=== PATIENT | male | born 1955 | race Caucasian/White ===

== ENCOUNTER → 2017-09-29 | Outpatient (CLI) | payer OTHER | END | disposition home or self-care (01) | LOC: NM 09:39 | DX: M54.12 Radiculopathy, cervical region (principal); M47.892 Other spondylosis, cervical region; M48.02 Spinal stenosis, cervical region; I10 Essential (primary) hypertension; E11.9 Type 2 diabetes mellitus without complications | CPT/HCPCS: 72050 ==

== ENCOUNTER → 2017-10-02 | Outpatient (CLI) | payer OTHER | END | disposition home or self-care (01) | LOC: KCIC MRI 13:29 | DX: M50.121 Cervical disc disorder at C4-C5 level with radiculopathy (principal); M25.78 Osteophyte, vertebrae; I10 Essential (primary) hypertension; E11.9 Type 2 diabetes mellitus without complications | CPT/HCPCS: 72141 ==

== ENCOUNTER → 2017-12-30 | Outpatient (CLI) | payer OTHER | END | disposition home or self-care (01) | LOC: KCIC MRI 12:46 | DX: S83.211A Bucket-handle tear of medial meniscus, current injury, right knee, initial encounter (principal); M71.21 Synovial cyst of popliteal space [Baker], right knee; M94.261 Chondromalacia, right knee; M17.11 Unilateral primary osteoarthritis, right knee; I10 Essential (primary) hypertension; E11.9 Type 2 diabetes mellitus without complications; J44.9 Chronic obstructive pulmonary disease, unspecified; X58.XXXA Exposure to other specified factors, initial encounter; Y93.89 Activity, other specified; Y92.89 Other specified places as the place of occurrence of the external cause; Y99.8 Other external cause status | CPT/HCPCS: 73721 ==

== ENCOUNTER 2018-02-06 08:02 | Day surgery (SDC) | payer OTHER ==
[~2018-02-06] VITALS: Ht 182.9 cm; Wt 109.0 kg
[~2018-02-06 08:02] MED LIST: ATOR10TA60 PO; BENZ-8 PO; BUPIVACAINE-EPI 0.5%-1:200000 50 ML VIAL. ONE; CELE200C PO; DEPO TESTOSTERONE; FLUT1DIS IH; FLUT9.9S NS; HYDROmorphone 2 MG/ML VIAL IV PRN; IBUP-1060 PO; INSU100V13 SQ; INSU100V31 SQ; IV RINGERS,LACTATED 1000ML 1,000 ML IV SCH; LANS30CA PO; LIDOCAINE 1% PF 2 ML VIAL. ID PRN; LISI10TA2 PO; LORA10TA3 PO; METF500T5 PO; METH-38 PO; MONT10TA6 PO; MONT10TA9 PO; MORPHINE SULFATE 2 MG/ML VIAL. IV PRN; ONDANSETRON PF 4 MG/2 ML VIAL. IV PRN; OXYC-323 PO; PANT20TA2 PO; PENI500T PO; PREG150C PO; PROCHLORPERAZINE 10 MG/2 ML VIAL. IV PRN; SIMV20TA3 PO; TRAM-48 PO; TRAM50TA PO; TYLENOL OTC; VENL150C PO; [UNRECOGNIZED DRUG - REMARK]; claritin; fentaNYL PF VIAL 100 MCG/2 ML VIAL IV PRN; metformin; prevacid
[2018-02-06] MEDS ORDERED: BUPIVACAINE-EPI 0.5%-1:200000 50 ML VIAL. ONE (08:40)
--- NOTE | 2018-02-06 08:43 | RAD ---
CHEST PA LATERAL History: PRE-OP FOR KNEE SURGERY, SMOKER Comparison: February 16, 2015 Findings: 2 views of the chest are submitted. There is no infiltrate, pneumothorax, or effusion. The cardiac silhouette is within normal limits in size. There are again 3 calcified granulomas of the left lung base which are unchanged. Impression: 1. There is no radiographic evidence of acute cardiopulmonary disease. Electronically signed by: Mihir Perez MD (02/06/2018 8:40 AM) [id number]
--- NOTE | 2018-02-06 08:53 | DISCH ---
DISCHARGE INSTRUCTIONS Condition on Discharge Condition on Discharge: Stable Activity After Discharge Activity Instructions for Disc: No restrictions (slow advance to normal activities) Weight Bearing Status after Di: As tolerated Diet after Discharge Diet after Discharge: Low Fat, Low Sodium 2 gm Wound Incision Care Wound/Incision Care: Ice to area for comfort, Keep wound elevated, Change dressing (May remove dressing in 2 days may then shower but no soaking knee until sutures removed) Contacting the DR. after DC Call your doctor for: Concerns you may have Follow-Up Follow up with: Yuridia 10 days Treatment/Equipment after DC Adaptive Equipment Issued: None DAE WELLS MD Feb 06, 2018 08:53
[2018-02-06] MEDS ORDERED: OXYC-327 PO (08:55)
--- NOTE | 2018-02-06 08:55 | EKG ---
[facility] [address] [place] [address] Test Date: 2018-02-06 Test Time: 08:00:56 Pat Name: SACHIN ALARCON Department: Room: Gender: M [employer] Offbearer: MR SWANB: 1955 Requested By: DAE WELLS Order Number: [id number] Reading MD: Jair Castaneda MD Measurements Intervals [place] Rate: 86 P: 90 OK: 176 QRS: -49 QRSD: 100 T: 7 QT: 382 QTc: 460 Interpretive Statements SINUS RHYTHM ABNORMAL LEFT AXIS DEVIATION LEFT ANTERIOR FASCICULAR BLOCK ABNORMAL ECG Electronically Signed On 02-10-2018 8:58:36 CDT by Jair Castaneda MD
[2018-02-06] MEDS ORDERED: LIDOCAINE 2% PF Vial for OR 5 ML VIAL. ONE (09:38)
[2018-02-06] MEDS ORDERED: PROPOFOL 20 ML IV ONE (09:38)
[2018-02-06] MEDS ORDERED: ONDANSETRON PF 4 MG/2 ML VIAL. ONE (09:39)
[2018-02-06] MEDS ORDERED: DEXAMETHASONE SOD PHOS 20 MG/5 ML VIAL. ONE (09:39)
[2018-02-06] MEDS ORDERED: MIDAZOLAM HCL/PF 2 MG/2 ML VIAL. ONE (09:40)
[2018-02-06] MEDS ORDERED: fentaNYL PF VIAL 100 MCG/2 ML VIAL ONE (09:40)
[2018-02-06] MEDS ORDERED: BUPIVACAINE-EPI 0.5%-1:200000 50 ML VIAL. INJ ONE (10:12)
[2018-02-06] MEDS ORDERED: ceFAZolin SODIUM 1 GM VIAL ONE (10:13)
--- NOTE | 2018-02-06 11:05 | PDOC4 ---
Operative Note Operative Note Date of surgery: 02/06/2018 Preoperative diagnosis: Flipped bucket handle tear medial meniscus right knee Postoperative diagnosis: Same plus chondral malacia patella Operative procedure: Right knee arthroscopy partial medial meniscectomy Surgeon: Yuridia Anesthesia: Gen. Estimated blood loss: 3 mL Complications: None Operative indications:Dallas is a 62-year-old male with right knee pain and swelling. MRI shows a flipped bucket handle tear of the medial meniscus. He also has some sciatica type pain that has been ongoing. I told him that if he walks better given the mechanical treatment of his knee it may help his back but I cannot guarantee any help with the sciatica. Likewise I cannot undo any degenerative changes present on the knee other than simply removing any loose irritants in the knee. I went over risks benefits postoperative course with him including continued pain swelling nerve or blood vessel damage infection medical or other anesthetic complications among others all his questions were answered he wishes to proceed with surgical evaluation and treatment Operative text: Patient was identified procedure verified patient placed in the supine position on the operating table. After adequate amounts of general anesthesia were administered a thigh tourniquet was placed in the right lower extremity was prepped and draped in standard sterile fashion. After timeout was performed patient procedure identified and verified the right lower extremity was exsanguinated by Esmarch bandage tourniquet inflated to 300 mmHg lateral portal was established a medial portal established using spinal needle localization and the knee joint was systematically examined. Patellofemoral joint was noted to be with significant patellofemoral chondromalacia and not requiring debridement. The trochlea was intact. There was no maltracking no loose bodies noted in the gutters or suprapatellar pouch medial meniscus was found to have a flipped bucket handle tear of the posterior horn of the medial meniscus which was displaced anteriorly and was reduced back into position using the arthroscopic probe and the damage surveyed. It was then trimmed back to stable tissue using arthroscopic punch and shaver to radiused the area to eliminate further stress risers. He had some minimal chondral fraying on the medial femoral condyle which was gently trimmed with arthroscopic shaver lateral meniscus and lateral compartment cartilage was well-preserved as was the ACL. The knee was toured again to verify no loose bodies were present the knee was drained of arthroscopic fluid portals closed with nylon suture and a total of about 25 mL of half percent plain Marcaine were infused into the fat pad and joint capsule area. Sterile dressings were applied. Toes were noted be warm pink find deflation of tourniquet. He was returned recovery room in stable condition having tolerated procedure well DAE WELLS MD Feb 06, 2018 11:05
[2018-02-06] MEDS: fentaNYL PF VIAL 100 MCG/2 ML VIAL IV PRN ×2 (11:06→11:30)
[2018-02-06 11:44] VITALS: BP 153/90
[2018-02-06] MEDS ORDERED: oxyCODONE/APAP 7.5/325 1 TAB TABLET PO PRN (12:00)
== END 2018-02-06 12:25 | disposition home or self-care (01) ==
LOC: SURG 08:02
PROVIDERS: ATTEND Orthopaedic Surgery
DX: S83.211A Bucket-handle tear of medial meniscus, current injury, right knee, initial encounter (principal); M22.41 Chondromalacia patellae, right knee; F32.9 Major depressive disorder, single episode, unspecified; I10 Essential (primary) hypertension; J44.9 Chronic obstructive pulmonary disease, unspecified; E11.42 Type 2 diabetes mellitus with diabetic polyneuropathy; E78.5 Hyperlipidemia, unspecified; K21.9 Gastro-esophageal reflux disease without esophagitis; F17.210 Nicotine dependence, cigarettes, uncomplicated; Z72.89 Other problems related to lifestyle; Z79.84 Long term (current) use of oral hypoglycemic drugs; Z79.899 Other long term (current) drug therapy; Z88.8 Allergy status to other drugs, medicaments and biological substances; W01.0XXA Fall on same level from slipping, tripping and stumbling without subsequent striking against object, initial encounter; Y93.89 Activity, other specified; Y92.89 Other specified places as the place of occurrence of the external cause; Y99.8 Other external cause status
CPT/HCPCS: 29881; 71046; 82962; 93005; C1782; J0690; J1100; J2001; J2250; J2270; J2405; J2704; J3010

== ENCOUNTER → 2018-03-25 | Outpatient (CLI) | payer OTHER ==
[~2018-03-25] MED LIST changes: -BUPIVACAINE-EPI 0.5%-1:200000 50 ML VIAL. ONE; -HYDROmorphone 2 MG/ML VIAL IV PRN; -IV RINGERS,LACTATED 1000ML 1,000 ML IV SCH; -LIDOCAINE 1% PF 2 ML VIAL. ID PRN; +METF500T16 PO; -METF500T5 PO; -MORPHINE SULFATE 2 MG/ML VIAL. IV PRN; -ONDANSETRON PF 4 MG/2 ML VIAL. IV PRN; +OXYC-327 PO; -PROCHLORPERAZINE 10 MG/2 ML VIAL. IV PRN; -fentaNYL PF VIAL 100 MCG/2 ML VIAL IV PRN
[2018-03-25 13:12] LABS: CALCIUM 9.1 mg/dL (8.5-10.1); CREATININE 0.9 mg/dL (0.7-1.3); GFR 86.1
[2018-03-25 13:21] LABS: POTASSIUM 5.2 mmol/L (3.5-5.1)
[2018-03-25 23:12] LABS: HEMOGLOBIN A1C 9.7 % (4.8-5.6)
== END | disposition home or self-care (01) ==
LOC: LAB 12:14
PROVIDERS: ATTEND Family Medicine
DX: E11.49 Type 2 diabetes mellitus with other diabetic neurological complication (principal); I10 Essential (primary) hypertension; F17.210 Nicotine dependence, cigarettes, uncomplicated; Z79.4 Long term (current) use of insulin
CPT/HCPCS: 36415; 80048; 83036